=== PATIENT | male | born 1985 | race Two or more races ===

== ENCOUNTER 2018-04-13 21:50 | Inpatient (IN) | payer MEDICAID ==
[~2018-04-13] VITALS: Ht 170.2 cm; Wt 82.3 kg
--- NOTE | 2018-04-13 22:00 | NUR ---
BB SELF; "RIGHT ANAL PAIN X 4 DAYS", NAD NOTED, VSS, RESP EVEN AND UNLABORED, PT WAS PUT ON MONITOR AND HOSPITAL GOWN. AT BS.
[2018-04-13] MEDS ORDERED: KETOROLAC TROMETHAMINE INJ 30 MG/ML VIAL ONE (22:38)
[2018-04-13 22:52] LABS: BASOPHILS % (AUTO) 0.4 % (0.0-2.0); EOSINOPHILS % (AUTO) 1.5 % (0.0-6.0); HEMATOCRIT 44 % (39-51); HEMOGLOBIN 15.2 g/dL (13.5-17.5); LYMPHOCYTES # (AUTO) 1.3 /CMM (0.8-4.8); LYMPHOCYTES % (AUTO) 12.3 % (20.0-44.0); MEAN CORPUSCULAR HGB CONC 35 g/dl (31.0-36.0); MEAN CORPUSCULAR VOLUME 91 fL (80-96); MONOCYTES # (AUTO) 0.5 /CMM (0.1-1.30); MONOCYTES % (AUTO) 4.9 % (2.0-12.0); NEUTROPHILS # (AUTO) 8.7 /CMM (1.8-8.9); NEUTROPHILS % (AUTO) 80.9 % (43.0-81.0); PLATELET COUNT (AUTO) 186 /CMM (150-450); RDW COEFFICIENT OF VARIATION 12.8 (11.5-15.0); RED BLOOD CELL COUNT(AUTO) 4.83 MIL/uL (4.5-6.0); WHITE BLOOD COUNT (AUTO) 10.7 K/uL (4.3-11.0)
[2018-04-13] MEDS ORDERED: KETOROLAC TROMETHAMINE INJ 30 MG/ML VIAL IV ONE (23:00)
[2018-04-13] MEDS ORDERED: IV NS 0.9% 1,000 ML BAG IV ONE (23:00)
[2018-04-13 23:01] LABS: CALCIUM, SERUM 8.9 mg/dL (8.5-10.1); CREATININE 0.9 mg/dL (0.6-1.3); POTASSIUM 3.5 mmol/L (3.5-5.1)
[2018-04-13 23:12] LABS: INR 0.95 (0.87-1.13)
[2018-04-13] MEDS ORDERED: IV NS 0.9% 500 ML IV ONE (23:19)
[2018-04-13] MEDS ORDERED: CT SWABBABLE VALVE TRANS SET 1 EA INFUS.SET MC ONE (23:19)
[2018-04-13] MEDS ORDERED: IOHEXOL-300 100 ML VIAL IV ONE (23:19)
[2018-04-14] MEDS ORDERED: PIPERACILLIN /TAZOBACTAM 3.375 G in IV D5W 50 ML IV ONE (01:30)
[2018-04-14] MEDS ORDERED: IV NS 0.9% 1,000 ML BAG IV ONE (01:30)
--- NOTE | 2018-04-14 02:02 | NUR ---
ms bed 316.1
[2018-04-14] MEDS ORDERED: PIPERACILLIN /TAZOBACTAM 3.375 G VIAL IV ONE (02:19)
[2018-04-14] MEDS ORDERED: Z GUARD REMEDY 2 OZ OINT TP PRN (02:30)
[2018-04-14] MEDS ORDERED: MORPHINE SULFATE INJ 2 MG/ML DISP.SYRIN IV PRN (02:30)
[2018-04-14] MEDS ORDERED: ACETAMINOPHEN 325 MG TABLET PO PRN (02:30)
[2018-04-14] MEDS ORDERED: ONDANSETRON HCL/PF 4 MG/2 ML VIAL IVP PRN (02:30)
[2018-04-14] MEDS ORDERED: MAG HYDROX/AL HYDROX/SIMETH 30 ML UDC PO PRN (02:30)
[2018-04-14] MEDS ORDERED: MAGNESIUM HYDROXIDE 30 ML UDC PO PRN (02:30)
[2018-04-14 02:45] VITALS: BP 114/67
[2018-04-14 03:00] VITALS: BP 114/67
--- NOTE | 2018-04-14 03:00 | NUR ---
MS RN NOTES ADMITTED FROM ER PER WHEELCHAIR,A/O X4.WITH CHIEF COMPLAINTS RECTAL PAIN X 4 DAYS.BREATHING REGULAR.SALINE LOCK LEFT AC #18 INTACT AND PATENT. NO SKIN,AMBULATORY., ABLE TP SPEAK MONGOLIAN.NO KNOWN MEDICAL HISTORY.CALL LIGHT IN REACH,NEEDS ANTICIPATED.
[2018-04-14] MEDS: IV D5/0.45 NACL 1,000 ML IV PRN ×2 (03:21→17:47)
--- NOTE | 2018-04-14 03:43 | NUR ---
MS RN NOTES STARTED ON IVF D5 1/2 NS AT 75ML/HR RATE VIA IV PUMP.
[2018-04-14] MEDS ORDERED: VANCOMYCIN 1 GM in IV NS 0.9% 250 ML IV SCH (04:00)
[2018-04-14] MEDS ORDERED: LEVOFLOXACIN (750 MG) 750 MG TABLET PO SCH ×2 (04:00→05:00)
[2018-04-14] MEDS ORDERED: VANCOMYCIN 1 GM VIAL ONE (04:17)
--- NOTE | 2018-04-14 04:28 | NUR ---
MS RN NOTES STARTED ON VANCOMYCIN 1GM IVPB HUNG ORDERED
--- NOTE | 2018-04-14 05:00 | NUR ---
MS RN NOTES STARTED ON LEVAQUIN 750MG PO ORDERED,TAKEN WELL.
--- NOTE | 2018-04-14 06:33 | NUR ---
MS RN NOTES SLEPT WELL,IVF INFUSING,SITE REMAINS PATENT.PAIN TOLERABLE AT THE MOMENT.ON REGULAR DIET,PER JAKOB JIMÉNEZ,FOR SURGICAL CONSULT.WILL ENDORSE TO DAY NURSE FOR EDILSON.
--- NOTE | 2018-04-14 07:03 | NUR ---
MS RN NOTES PATIENT IN BED ALERT ORIENTED X 4 NO ACUTE DISTRESS NOTED. BREATHING UNLABORED. NO SOB NOTED. DENIED ANY PAIN AT THIS TIME. IV ACCESS PATENT AND INTACT, NO REDNESS OR SWELLING NOTED. SAFETY MEASURES IN PLACE. CALL LIGHT WITHIN REACH. WILL CONTINUE TO MONITOR ACCORDINGLY.
[2018-04-14] MEDS ORDERED: FEE PK DOSING 1 MIN EA MC ONE ×2 (07:40)
[2018-04-14 08:00] VITALS: BP 121/63
[2018-04-14] MEDS: PANTOPRAZOLE 40 MG TABLET.DR PO SCH (08:13)
[2018-04-14] MEDS: METRONIDAZOLE 500 MG TABLET PO SCH ×3 (08:13→17:06)
[2018-04-14] MEDS: HYDROCODONE/APAP 10/325MG 1 EA TABLET PO PRN (12:17)
[2018-04-14] MEDS: VANCOMYCIN 1 GM in IV D5W 250 ML IV SCH ×2 (13:45→22:35)
[2018-04-14 16:00] VITALS: BP 118/72
[2018-04-14] MEDS ORDERED: LIDOCAINE 1%-EPI 1:100,000 20 ML VIAL TP ONE (16:00)
[2018-04-14] MEDS ORDERED: IV NS 0.9% 1,000 ML IV ONE (18:30)
[2018-04-14] MEDS: HYDROCODONE/APAP 5/325MG 1 EACH TABLET PO PRN (18:45)
--- NOTE | 2018-04-14 18:50 | NUR ---
MS RN NOTES PATIENT IN BED ALERT ORIENTED X 4. NO ACUTE DISTRESS NOTED. BREATHING UNLABORED. NO SOB NOTED. IV ACCESS PATENT AND INTACT, NO REDNESS OR SWELLING NOTED. DUE MEDICATIONS GIVEN, NO ASE NOTED. NEEDS ATTENDED AND ANTICIPATED. SAFETY MEASURES IN PLACE. CALL LIGHT WITHIN REACH. WILL ENDORSE TO NIGHT NURSE FOR CONTINUITY OF CARE.
--- NOTE | 2018-04-14 19:30 | NUR ---
RN MS OPENING NOTES RECEIVED PATIENT IN BED, AWAKE ALERT AND ORIENTED X 4, RESPIRATIONS EVEN AND UNLABORED, WITH EQUAL RISE AND FALL OF CHEST, DENIES ANY PAIN OR DISCOMFORT AT THIS TIME,IV SITE TO LEFT FA #18 GAUGE INTACT AND PATENT, NO REDNESS. NO INFILTRATION PRESENT, IVF FLUID RUNNING ORDERED. ORIENTED TO STAFF AND CALL LIGHT, CALL LIGHT KEPT WITHIN REACH, ASSISTED TO BATHROOM WITH STAND BY ASSIST, STEADY GAIT. URINAL AT BEDSIDE, FLUIDS OFFERED TOLERATED, SAFETY PRECAUTIONS RENDERED, ALL NEEDS ATTENDED AT THIS TIME CALL LIGHT KEPT WITHIN REACH. WILL CONTINUE TO MONITOR.
[2018-04-14 20:00] VITALS: BP 139/86
--- NOTE | 2018-04-14 20:00 | NUR ---
RN MS NOTES PATIENT SEEN BY DR. JULIAN, WITH NEW ORDERS FOR PROCEDURE TOMORROW UNABLE TO DO AT BEDSIDE.PATIENT MADE AWARE OF PROCEDURE AND NPO STATUS AT MIDNIGHT WILL FOLLOW UP WITH CONSENTS.
[2018-04-14] MEDS: MORPHINE SULFATE INJ 4 MG/ML DISP.SYRIN IV PRN (20:42)
--- NOTE | 2018-04-14 20:42 | NUR ---
RN MS NOTES PATIENT COMPLAINT OF PAIN TO ANAL/BUTTOCKS AREA, PAIN IS 8-9/10 .OFFERED MORPHINE PRN, AGREED TO PRN GIVEN ORDERED. WILL CONTINUE TO MONITOR. PATIENT REQUESTING FOR ROOM CHANGE , WILL MOVE TO 315-1, CHARGE NURSE AWARE.
[2018-04-15] MEDS: HYDROCODONE/APAP 10/325MG 1 EA TABLET PO PRN (02:53)
[2018-04-15] MEDS: VANCOMYCIN 1 GM in IV D5W 250 ML IV SCH ×3 (05:33→21:56)
[2018-04-15] MEDS: PANTOPRAZOLE 40 MG TABLET.DR PO SCH (06:37)
[2018-04-15 06:57] LABS: CALCIUM, SERUM 8.5 mg/dL (8.5-10.1); CREATININE 0.9 mg/dL (0.6-1.3); POTASSIUM 3.8 mmol/L (3.5-5.1)
--- NOTE | 2018-04-15 07:22 | NUR ---
RN MS CLOSING NOTES PATIENT IN BED, AWAKE ALERT AND ORIENTED X 4, RESPIRATIONS EVEN AND UNLABORED, WITH EQUAL RISE AND FALL OF CHEST, DENIES ANY PAIN OR DISCOMFORT AT THIS TIME,IV SITE TO LEFT FA #18 GAUGE INTACT AND PATENT, NO REDNESS. NO INFILTRATION PRESENT, IVF FLUID RUNNING ORDERED. CALL LIGHT KEPT WITHIN REACH, URINAL AT BEDSIDE, PATIENT AWARE OF NPO STATUS, CONSENTS FOR PROCEDURE IN CHART, SAFETY PRECAUTIONS RENDERED, ALL NEEDS ATTENDED AT THIS TIME, WILL CONTINUE TO MONITOR AND ENDORSE TO NEXT SHIFT.
--- NOTE | 2018-04-15 07:45 | NUR ---
MS RN OPENING NOTES RECEIVED PATIENT IN STABLE CONDITION. IN NO APPARENT DISTRESS. BEDSIDE RAILS ARE UPX2. BED IS LOCKED AND LOWERED. CALL LIGHT IS WITHIN REACH. IV LINE IS INTACT AND PATENT. WILL CONTINUE TO MONITOR.
[2018-04-15] MEDS: LEVOFLOXACIN (750 MG) 750 MG TABLET PO SCH (08:36)
[2018-04-15] MEDS: METRONIDAZOLE 500 MG TABLET PO SCH ×3 (08:36→16:03)
[2018-04-15 08:59] VITALS: BP 115/66
--- NOTE | 2018-04-15 10:15 | NUR ---
PATIENT TAKEN DOWN TO OPERATION ROOM.
[2018-04-15] MEDS ORDERED: MIDAZOLAM HCL 2 MG/2ML VIAL ONE (10:43)
[2018-04-15] MEDS ORDERED: FENTANYL PF 100MCG/2ML AMPUL ONE (10:43)
[2018-04-15] MEDS ORDERED: LIDOCAINE 1%-EPI 1:100,000 20 ML VIAL ONE (11:26)
[2018-04-15] MEDS ORDERED: BUPIVACAINE 0.25% 75 MG/30 ML VIAL ONE (11:26)
[2018-04-15] MEDS ORDERED: LIDOCAINE 0.5%-EPI 1:200,000 50 ML VIAL ONE (11:26)
[2018-04-15] MEDS ORDERED: HYDROMORPHONE INJ 2 MG/ML DISP.SYRIN ONE (12:21)
[2018-04-15] MEDS: MORPHINE SULFATE INJ 4 MG/ML DISP.SYRIN IV PRN ×2 (16:04→21:09)
[2018-04-15 16:15] VITALS: BP 133/83
--- NOTE | 2018-04-15 18:28 | NUR ---
MS RN CLOSING NOTES PATIENT IS ALERT AND ORIENTED. IN NO APPARENT DISTRESS. BEDSIDE RAILS ARE UPX2. BED IS LOCKED AND LOWERED. CALL LIGHT IS WITHIN REACH. IV LINE IS INTACT AND PATENT. ALL NEEDS WERE MET. WILL ENDORSE CARE TO WIRELESS SALES MANAGER NURSE FOR EDILSON.
--- NOTE | 2018-04-15 19:55 | NUR ---
RN MS NOTES RECEIVED PATIENT IN BED AWAKE ALERT AND ORIENTED X 4, RESPIRATIONS EVEN AND UNLABORED, WITH EQUAL RISE AND FALL OF CHEST, PATIENT STATES PAIN LEVEL IS AT 4 BUT DOES NOT PAIN MEDICATION AT THIS TIME, MADE PATIENT AWARE TO NOTIFY IF PAIN PERSISTS. LEFT AC #18 GAUGE INTACT AND PATENT, NO REDNESS , NO INFILTRATION PRESENT, DENIES ANY PAIN TO IV SITE. URINAL AT BEDSIDE, PATIENT ATTEMPTED TO SIT ON EDGE OF BED BUT UNABLE TO AT THIS TIME, BATHROOM NEEDS OFFERED , BED KING OFFERED, FLUIDS OFFERED AT THIS TIME, ALL NEEDS ATTENDED ,ORIENTED TO STAFF, AND CALL LIGHT , KEPT WITHIN REACH, DVT PUMPS IN PLACE, WILL CONTINUE TO MONITOR.
[2018-04-15 20:00] VITALS: BP 147/83
--- NOTE | 2018-04-15 20:00 | NUR ---
RN MS NOTES NOTED PATIENT WITH TEMPERATURE OF 100. NOTED WITH MULTIPLE BLANKETS, BLANKETS REMOVED FOR COOLING MEASURES, ROOM NOTED WARM AT THIS TIME, ROOM TEMPERATURE DECREASED, COOLING MEASURES DONE, WILL CONTINUE TO MONITOR.
--- NOTE | 2018-04-15 20:30 | NUR ---
ANGELITO MS NOTES REASSESSED TEMPERATURE NO CHANGE AT THIS TIME, NOTED AT 100, TYLENOL OFFERED, PATIENT AGREED TO TAKE, PRN GIVEN , WILL CONTINUE TO MONITOR. Addendum: 04/15/18 at 2254 by MARCY JAIN RN CLARIFICATION-WILL GIVE PRN WHEN PATIENT IS READY, PATIENT USING URINAL AT THIS TIME, COOLING MEASURES CONTINUED.
--- NOTE | 2018-04-15 21:08 | NUR ---
RN MS NOTES TYLENOL PRN GIVEN FOR ELEVATED TEMPERATURE, WILL CONTINUE TO MONITOR.
--- NOTE | 2018-04-15 21:08 | NUR ---
RN MS NOTES PATIENT COMPLAINT OF PAIN TO RIGHT S/P I&D ABSCESS SITE. , PATIENT REQUESTING FOR PAIN MEDICATION, MORPHINE PRN. GIVEN ORDERED. WILL CONTINUE TO MONITOR FOR EFFECTIVENESS, VITAL SIGNS WITHIN NORMAL LIMITS.
[2018-04-15 21:38] VITALS: BP 147/80
--- NOTE | 2018-04-15 21:38 | NUR ---
RN MS NOTES TEMPERATURE REASSESSED NOTED DECREASED TO 98.4, NOTED EFFECTIVE WILL CONTINUE TO MONITOR.
[2018-04-15] MEDS: HYDROCODONE/APAP 5/325MG 1 EACH TABLET PO PRN (23:49)
--- NOTE | 2018-04-15 23:49 | NUR ---
RN MS NOTES PATIENT COMPLAINT OF PAIN 5/10 TO RIGHT PERIANAL S/P I&D REQUESTING FOR PAIN MEDICATION NORCO, NORCO 5/325 GIVEN ORDERED. WILL CONTINUE TO MONITOR.
--- NOTE | 2018-04-16 | NUR ---
RN MS NOTES NOTED WOUND DRESSING SOILED, [facility] CURRENTLY NOT AVAILABLE AT THIS TIME, WILL FOLLOW UP , WOUND CARE PROVIDED WITH NORMAL SALINE, SITE PACKED ORDERED, DRY DRESSING APPLIED, NOTED FACIAL GRIMACING , PER PATIENT IS ABLE TO TOLERATE TREATMENT , TO CONTINUE WITH CARE.LINEN CHANGED. PATIENT REMINDED TO OFFLOAD REPOSITION AFFECTED AREA.
[2018-04-16] MEDS: VANCOMYCIN 1 GM in IV D5W 250 ML IV SCH ×2 (05:03→14:20)
[2018-04-16] MEDS: PANTOPRAZOLE 40 MG TABLET.DR PO SCH (06:44)
[2018-04-16 07:12] LABS: CALCIUM, SERUM 8.9 mg/dL (8.5-10.1); POTASSIUM 3.7 mmol/L (3.5-5.1)
--- NOTE | 2018-04-16 07:26 | NUR ---
RN MS CLOSING NOTES PATIENT IN BED, AWAKE VERBALLY RESPONSIVE BREATHING EVEN AND UNLABORED, DENIES ANY PAIN OR DISCOMFORT AT THIS TIME, IV SITE REMAINS INTACT AND PATENT.WITH NO REDNESS, INFILTRATION PRESENT , URINAL AT BEDSIDE. FLUIDS OFFERED TOLERATED, ALL NEEDS ATTENDED AT THIS TIME, PATIENT REMAINS COMFORTABLE, WILL CONTINUE TO MONITOR AND ENDORSE TO NEXT SHIFT.
[2018-04-16] MEDS: METRONIDAZOLE 500 MG TABLET PO SCH ×3 (08:30→17:43)
[2018-04-16] MEDS: LEVOFLOXACIN (750 MG) 750 MG TABLET PO SCH (08:30)
[2018-04-16] MEDS: HYDROCODONE/APAP 5/325MG 1 EACH TABLET PO PRN (08:35)
--- NOTE | 2018-04-16 08:35 | NUR ---
MS RN NOTES PATIENT IN BED AWAKE, A/O X4. BREAKFAST SERVED, ON CLEAR LIQUIDS, DENIES N/V. TOLERATING ROOM AIR WITH NO SOB. IVC IN LEFT AC PATENT AND INTACT, FLUSHES WELL. PATIENT REPORTED RECTAL INCISION SITE PAIN 5/10, MEDICATED WITH NORCO 5/325MG 1 TAB PO PRN, WILL REASSESS. CALL LIGHT WITHIN REACH. WILL CONT TO MONITOR.
[2018-04-16 08:36] VITALS: BP 111/53
[2018-04-16] MEDS ORDERED: DAKINS QUARTER STRENGTH (0.125%) 480 ML BOTTLE TOP SCH (13:00)
[2018-04-16] MEDS ORDERED: LEVO750T21 PO (13:28)
[2018-04-16] MEDS ORDERED: HYDR-552 PO (13:28)
[2018-04-16 16:10] VITALS: BP 120/66
--- NOTE | 2018-04-16 18:20 | NUR ---
MS RN CLOSING NOTES PATIENT UP SITTING IN THE BED, TOLERATED SOFT DIET. DRESSING CHANGED TO RIGHT PERIANAL WOUND TODAY, PAIN MANAGED BY NORCO PRN WITH RELIEF. IVC IN LEFT AC REMOVED, GAUZE APPLIED, NO BLEEDING NOTED. VOIDED WITHOUT DIFFICULTY. AFEBRILE DURING THE SHIFT. PATIENT HAS BEEN CLEARED FOR DISCHARGED HOME BY MD, WITH ROMANIAN AIDE COLOR BUFFER DRESSING CHANGE INSTRUCTION TO WOUND REVIEWED WITH THE PATIENT, VERBALIZED UNDERSTANDING. PRESCRIPTION GIVEN TO PATIENT, INSTRUCTED TO FOLLOW UP WITH HIS PRIMARY CARE PHYSICIAN IN 1 WEEK. BELONGINGS CHECKED AND SEND WITH THE PATIENT UPON DC. PATIENT LEFT HOSP IN STABLE CONDITION VIA PRIVATE CAR ACCOMPANIED BY [place].
--- NOTE | 2018-04-16 19:17 | NUR ---
RN MS OPENING/DISCHARGE NOTES RECEIVED PATIENT AWAKE , ALERT AND ORIENTED X 4 , ABLE TO VERBALIZES NEEDS, RESPIRATIONS EVEN AND UNLABORED WITH EQUAL RISE AND FALL OF CHEST. PATIENT IS READY FOR DISCHARGE , INSTRUCTIONS FOR DISCHARGE PROVIDED WITH AM NURSE, TRANSLATED IN [place], NO IV SITES PRESENT.PATIENT UNDERSTANDS WOUND CARE TREATMENT, PRESCRIPTION AND FOLLOWING UP WITH PCP. PATIENT HAS PERSONAL BELONGINGS WITH HIM, ACCOMPANIED WITH FAMILY MEMBER, PT TRANSPORTED FOR DISCHARGE WITH CHILD NEUROLOGIST STAFF MEMBER VIA WHEEL CHAIR, PATIENT LEFT IN STABLE CONDITION.
== END 2018-04-16 19:20 | disposition home or self-care (01) | DRG 348 ==
LOC: ER 21:57 → EDBD 04-14 02:27 → MED 04-14 02:27
PROVIDERS: ADMIT Registered Nurse; ATTEND Registered Nurse
PROC: 0D9QXZZ Drainage of Anus, External Approach (ICD-10-PCS; principal; 2018-04-15 11:00)
DX: K61.0 Anal abscess (principal); E87.1 Hypo-osmolality and hyponatremia; R73.9 Hyperglycemia, unspecified; E86.1 Hypovolemia; Z68.28 Body mass index [BMI] 28.0-28.9, adult
CPT/HCPCS: 36415; 71045-TC; 72193-TC; 80048-TC; 80202-TC; 83605-TC; 85025-TC; 85730-TC; 87040-TC; 87070-TC; 87075-TC; 87081-TC; A4606; A6253; A6402; A6403; A6407; J1170; J1885; J2250; J2270; J2543; J2704; J3010; J3370; J3490; J7030; J7040; J7050; J7060; Q9967; Z7610

== ENCOUNTER 2018-06-16 19:39 | Inpatient (IN) | payer MEDICAID ==
[~2018-06-16] VITALS: Ht 167.6 cm; Wt 83.7 kg
[~2018-06-16 19:39] MED LIST: HYDR-552 PO; LEVO750T21 PO
[2018-06-16 21:55] LABS: BASOPHILS % (AUTO) 0.1 % (0.0-2.0); EOSINOPHILS % (AUTO) 0.6 % (0.0-6.0); HEMATOCRIT 43 % (39-51); HEMOGLOBIN 14.5 g/dL (13.5-17.5); LYMPHOCYTES # (AUTO) 1.3 /CMM (0.8-4.8); LYMPHOCYTES % (AUTO) 11.8 % (20.0-44.0); MEAN CORPUSCULAR HEMOGLOBIN 31 PG (26.0-33.0); MEAN CORPUSCULAR HGB CONC 34 g/dl (31.0-36.0); MEAN CORPUSCULAR VOLUME 92 fL (80-96); MONOCYTES # (AUTO) 0.4 /CMM (0.1-1.30); MONOCYTES % (AUTO) 3.2 % (2.0-12.0); NEUTROPHILS # (AUTO) 9.6 /CMM (1.8-8.9); NEUTROPHILS % (AUTO) 84.3 % (43.0-81.0); PLATELET COUNT (AUTO) 186 /CMM (150-450); RDW COEFFICIENT OF VARIATION 13.2 (11.5-15.0); RED BLOOD CELL COUNT(AUTO) 4.69 MIL/uL (4.5-6.0); WHITE BLOOD COUNT (AUTO) 11.4 K/uL (4.3-11.0)
[2018-06-16] MEDS ORDERED: ONDANSETRON HCL/PF 4 MG/2 ML VIAL ONE (21:59)
[2018-06-16] MEDS ORDERED: IOHEXOL-300 100 ML VIAL IV ONE (22:00)
[2018-06-16] MEDS ORDERED: HYDROMORPHONE 1 MG/1 ML DISP.SYRIN ONE (22:00)
[2018-06-16] MEDS ORDERED: ONDANSETRON HCL/PF 4 MG/2 ML VIAL IVP ONE (22:00)
[2018-06-16] MEDS ORDERED: HYDROMORPHONE 1 MG/1 ML DISP.SYRIN IV ONE (22:00)
[2018-06-16] MEDS ORDERED: IV NS 0.9% 1,000 ML BAG IV ONE (22:00)
[2018-06-16] MEDS ORDERED: IV NS 0.9% 250 ML IV ONE (22:01)
[2018-06-16] MEDS ORDERED: CT SWABBABLE VALVE TRANS SET 1 EA INFUS.SET MC ONE (22:01)
[2018-06-16 22:07] LABS: CALCIUM, SERUM 8.9 mg/dL (8.5-10.1); CARBON DIOXIDE 28 mmol/L (21-32); CHLORIDE 100 mmol/L (98-107); CREATININE 0.9 mg/dL (0.6-1.3); GLUCOSE 101 mg/dL (74-106); POTASSIUM 4.1 mmol/L (3.5-5.1); SODIUM SERUM 136 mmol/L (136-145); UREA NITROGEN, BLOOD 10 mg/dL (7-18)
[2018-06-16 22:14] LABS: ALANINE AMINOTRANSFERASE 123 U/L (12-78); ALBUMIN 4.4 g/dL (3.4-5.0); ALKALINE PHOSPHATASE 57 U/L (46-116); ASPARTATE AMINOTRANSFERASE 32 U/L (15-37); BILIRUBIN,DIRECT 0.2 mg/dL (0.0-0.2); BILIRUBIN,TOTAL 1.1 mg/dL (0.2-1.0); TOTAL PROTEIN, SERUM 8.4 g/dL (6.4-8.2)
[2018-06-16 22:15] LABS: TROPONIN I < 0.017 ng/mL (0.00-0.056)
[2018-06-16 22:16] LABS: INR 0.96 (0.87-1.13)
[2018-06-16] MEDS ORDERED: HYDROMORPHONE INJ 2 MG/ML DISP.SYRIN ONE (23:05)
[2018-06-17] MEDS ORDERED: HYDROMORPHONE 1 MG/1 ML DISP.SYRIN IV ONE (00:30)
[2018-06-17] MEDS ORDERED: HYDROMORPHONE INJ 2 MG/ML DISP.SYRIN ONE (00:41)
[2018-06-17] MEDS ORDERED: PIPERACILLIN /TAZOBACTAM 3.375 G VIAL IV ONE (00:43)
[2018-06-17 01:00] VITALS: BP 145/89
[2018-06-17] MEDS: IV NS 0.9% 1,000 ML IV PRN ×2 (02:21→17:00)
[2018-06-17] MEDS ORDERED: MORPHINE SULFATE INJ 2 MG/ML DISP.SYRIN IV PRN (02:30)
[2018-06-17] MEDS ORDERED: ONDANSETRON HCL/PF 4 MG/2 ML VIAL IVP PRN (02:30)
[2018-06-17] MEDS ORDERED: ZOLPIDEM TARTRATE 5 MG TABLET PO PRN (02:30)
[2018-06-17] MEDS: MORPHINE SULFATE INJ 4 MG/ML DISP.SYRIN IV PRN ×5 (02:55→17:50)
[2018-06-17] MEDS ORDERED: PIPERACILLIN /TAZOBACTAM 2.25 G VIAL IV ONE (05:20)
[2018-06-17] MEDS ORDERED: PIPERACILLIN /TAZOBACTAM 3.375 G in IV D5W 50 ML IV ONE (06:00)
[2018-06-17] MEDS ORDERED: PIPERACILLIN /TAZOBACTAM 4.5 G in IV D5W 50 ML IV SCH (06:00)
[2018-06-17 07:09] LABS: BASOPHILS % (AUTO) 0.3 % (0.0-2.0); EOSINOPHILS % (AUTO) 0.9 % (0.0-6.0); HEMATOCRIT 41 % (39-51); HEMOGLOBIN 14.2 g/dL (13.5-17.5); LYMPHOCYTES # (AUTO) 1.1 /CMM (0.8-4.8); LYMPHOCYTES % (AUTO) 12.9 % (20.0-44.0); MEAN CORPUSCULAR HEMOGLOBIN 31 PG (26.0-33.0); MEAN CORPUSCULAR HGB CONC 34 g/dl (31.0-36.0); MEAN CORPUSCULAR VOLUME 92 fL (80-96); MONOCYTES # (AUTO) 0.5 /CMM (0.1-1.30); MONOCYTES % (AUTO) 5.8 % (2.0-12.0); NEUTROPHILS % (AUTO) 80.1 % (43.0-81.0); PLATELET COUNT (AUTO) 160 /CMM (150-450); RED BLOOD CELL COUNT(AUTO) 4.52 MIL/uL (4.5-6.0); WHITE BLOOD COUNT (AUTO) 8.8 K/uL (4.3-11.0)
[2018-06-17 07:25] LABS: CALCIUM, SERUM 8.4 mg/dL (8.5-10.1); CREATININE 0.9 mg/dL (0.6-1.3); MAGNESIUM 2.1 mg/dL (1.8-2.4); POTASSIUM 3.9 mmol/L (3.5-5.1)
[2018-06-17 08:00] VITALS: BP 124/69
[2018-06-17] MEDS: ACETAMINOPHEN 325 MG TABLET PO PRN ×2 (08:39→19:33)
[2018-06-17] MEDS: DOCUSATE SODIUM 100 MG CAPSULE PO SCH ×2 (08:39→16:43)
[2018-06-17] MEDS: PIPERACILLIN /TAZOBACTAM 3.375 G in IV D5W 50 ML IV SCH ×3 (11:58→23:23)
[2018-06-17 16:00] VITALS: BP 131/77
[2018-06-17 20:00] VITALS: BP 122/75
[2018-06-17] MEDS ORDERED: LIDOCAINE 0.5%-EPI 1:200,000 50 ML VIAL ONE (21:01)
[2018-06-17] MEDS ORDERED: ANESTHESIA TRAY IN PYXIS 1 EA TRAY MC ONE (21:01)
[2018-06-17] MEDS ORDERED: MIDAZOLAM HCL 2 MG/2ML VIAL ONE (21:19)
[2018-06-17] MEDS ORDERED: FENTANYL PF 100MCG/2ML AMPUL ONE (21:19)
[2018-06-17] MEDS ORDERED: HYDROCODONE/APAP 5/325MG 1 EACH TABLET PO PRN (23:30)
[2018-06-17] MEDS ORDERED: HYDROMORPHONE INJ 0.5 MG/0.5 ML SYRINGE IV PRN (23:30)
[2018-06-18] MEDS: PIPERACILLIN /TAZOBACTAM 3.375 G in IV D5W 50 ML IV SCH ×3 (05:39→17:07)
[2018-06-18 07:07] LABS: EOSINOPHILS % (AUTO) 0.3 % (0.0-6.0); HEMATOCRIT 41 % (39-51); HEMOGLOBIN 13.6 g/dL (13.5-17.5); LYMPHOCYTES # (AUTO) 0.8 /CMM (0.8-4.8); LYMPHOCYTES % (AUTO) 8.7 % (20.0-44.0); MEAN CORPUSCULAR HEMOGLOBIN 31 PG (26.0-33.0); MEAN CORPUSCULAR HGB CONC 33 g/dl (31.0-36.0); MEAN CORPUSCULAR VOLUME 92 fL (80-96); MONOCYTES % (AUTO) 3.5 % (2.0-12.0); NEUTROPHILS # (AUTO) 7.7 /CMM (1.8-8.9); NEUTROPHILS % (AUTO) 87.5 % (43.0-81.0); PLATELET COUNT (AUTO) 166 /CMM (150-450); RDW COEFFICIENT OF VARIATION 12.8 (11.5-15.0); RED BLOOD CELL COUNT(AUTO) 4.46 MIL/uL (4.5-6.0); WHITE BLOOD COUNT (AUTO) 8.8 K/uL (4.3-11.0)
[2018-06-18 07:08] LABS: CALCIUM, SERUM 8.1 mg/dL (8.5-10.1); CREATININE 0.9 mg/dL (0.6-1.3); MONOCYTES # (AUTO) 0.3 /CMM (0.1-1.30); PHOSPHORUS 4.1 mg/dL (2.5-4.9); POTASSIUM 3.8 mmol/L (3.5-5.1)
[2018-06-18] MEDS: MORPHINE SULFATE INJ 4 MG/ML DISP.SYRIN IV PRN ×3 (07:32→17:53)
[2018-06-18 08:00] VITALS: BP 121/64
[2018-06-18] MEDS: DOCUSATE SODIUM 100 MG CAPSULE PO SCH ×2 (08:26→17:07)
[2018-06-18] MEDS ORDERED: MAGNESIUM HYDROXIDE 30 ML UDC PO PRN (09:00)
[2018-06-18] MEDS: IV NS 0.9% 1,000 ML IV PRN (13:18)
[2018-06-18 16:00] VITALS: BP 112/67
[2018-06-18 20:00] VITALS: BP 148/96
[2018-06-18] MEDS ORDERED: HYDROMORPHONE 1 MG/1 ML DISP.SYRIN ONE (21:03)
[2018-06-18] MEDS ORDERED: HYDROMORPHONE 1 MG/1 ML DISP.SYRIN IV ONE (21:30)
[2018-06-18] MEDS ORDERED: HYDROMORPHONE 1 MG/1 ML DISP.SYRIN IV PRN (21:30)
[2018-06-19] MEDS: PIPERACILLIN /TAZOBACTAM 3.375 G in IV D5W 50 ML IV SCH ×5 (00:44→23:36)
[2018-06-19] MEDS: IV NS 0.9% 1,000 ML IV PRN ×2 (05:47→23:38)
[2018-06-19 08:00] VITALS: BP 132/82
[2018-06-19] MEDS: DOCUSATE SODIUM 100 MG CAPSULE PO SCH ×2 (08:16→16:49)
[2018-06-19 16:00] VITALS: BP 131/87
[2018-06-19] MEDS: HYDROMORPHONE 1 MG/1 ML DISP.SYRIN IV PRN (16:50)
[2018-06-19 20:00] VITALS: BP 117/71
[2018-06-20] MEDS: HYDROMORPHONE 1 MG/1 ML DISP.SYRIN IV PRN (00:32)
[2018-06-20] MEDS: PIPERACILLIN /TAZOBACTAM 3.375 G in IV D5W 50 ML IV SCH ×2 (06:24→11:56)
[2018-06-20 06:28] LABS: BASOPHILS % (AUTO) 0.5 % (0.0-2.0); EOSINOPHILS % (AUTO) 4.7 % (0.0-6.0); HEMATOCRIT 41 % (39-51); HEMOGLOBIN 13.8 g/dL (13.5-17.5); LYMPHOCYTES # (AUTO) 1.4 /CMM (0.8-4.8); LYMPHOCYTES % (AUTO) 37.1 % (20.0-44.0); MEAN CORPUSCULAR HEMOGLOBIN 31 PG (26.0-33.0); MEAN CORPUSCULAR HGB CONC 34 g/dl (31.0-36.0); MEAN CORPUSCULAR VOLUME 91 fL (80-96); MONOCYTES # (AUTO) 0.2 /CMM (0.1-1.30); MONOCYTES % (AUTO) 5.8 % (2.0-12.0); NEUTROPHILS % (AUTO) 51.9 % (43.0-81.0); PLATELET COUNT (AUTO) 211 /CMM (150-450); RDW COEFFICIENT OF VARIATION 12.4 (11.5-15.0); RED BLOOD CELL COUNT(AUTO) 4.47 MIL/uL (4.5-6.0); WHITE BLOOD COUNT (AUTO) 3.8 K/uL (4.3-11.0)
[2018-06-20 06:32] LABS: CALCIUM, SERUM 8.6 mg/dL (8.5-10.1); CREATININE 0.8 mg/dL (0.6-1.3); POTASSIUM 4.2 mmol/L (3.5-5.1)
[2018-06-20 08:00] VITALS: BP 127/79
[2018-06-20] MEDS: DOCUSATE SODIUM 100 MG CAPSULE PO SCH (08:27)
[2018-06-20 16:00] VITALS: BP 140/84
== END 2018-06-20 16:00 | disposition home health service (06) | DRG 223 ==
LOC: ER 19:42 → MED 06-17 00:35
PROVIDERS: ADMIT Nurse Practitioner Acute Care; ATTEND Nurse Practitioner Acute Care
PROC: 0D9P0ZZ Drainage of Rectum, Open Approach (ICD-10-PCS; principal; 2018-06-17 21:54)
DX: K61.1 Rectal abscess (principal); K76.0 Fatty (change of) liver, not elsewhere classified; D72.829 Elevated white blood cell count, unspecified; E66.9 Obesity, unspecified; Z68.29 Body mass index [BMI] 29.0-29.9, adult
CPT/HCPCS: 36415; 80048-TC; 80061-TC; 80076-TC; 83735-TC; 84100-TC; 84484-TC; 85025-TC; 85730-TC; 86850-TC; 87070-TC; 87081-TC; 87186-TC; A4606; A6253; A6402; A6403; A6407; J1170; J2250; J2270; J2405; J2543; J3010; J3490; J7030; J7050; J7060; Q9967; Z7610